=== PATIENT | male | born 1960 ===

== ENCOUNTER 2024-04-04 20:45 | Emergency (ER) | payer BC ==
[2024-04-04] MEDS: Sodium Chloride 0.9% 1,000 ML IV SCH (21:16)
[2024-04-04 21:17] LABS: EOSINOPHILS PERCENT AUTO 0.1 % (0.0-6.0); HEMATOCRIT 42.2 % (42.0-52.0); HEMOGLOBIN 14.2 gm/dl (14.0-18.0); IMMATURE GRAN ABSOLUTE AUTO 0.04 K/mm3 (0.00-0.05); IMMATURE GRAN PERCENT AUTO 0.4 % (0.0-0.4); LYMPHOCYTES ABSOLUTE AUTO 1.3 K/mm3 (1.0-4.8); LYMPHOCYTES PERCENT AUTO 13.4 % (24.0-44.0); MEAN CORPUSCULAR HEMOGLOBIN 32.3 pg (28.0-32.0); MEAN CORPUSCULAR HGB CONC 33.6 g/dl (32.0-36.0); MEAN CORPUSCULAR VOLUME 95.9 fl (83.0-99.0); MEAN PLATELET VOLUME 9.4 fl (9.4-12.4); MONOCYTES ABSOLUTE AUTO 0.2 K/mm3 (0.0-0.8); MONOCYTES PERCENT AUTO 2.1 % (0.0-8.0); NEUTROPHILS ABSOLUTE AUTO 8.1 K/mm3 (1.8-7.7); PLATELET COUNT,PLT 284 K/mm3 (150-400); WHITE BLOOD CELL COUNT,WBC 9.62 K/mm3 (3.9-11.3)
[2024-04-04 21:29] LABS: A/G RATIO 1.1 (1-2); ALBUMIN 3.8 g/dl (3.4-5.0); ANION GAP 13.4 (5-15); BILIRUBIN TOTAL 0.3 mg/dL (0.2-1.0); BUN/CREATININE RATIO 16.4 (14-18); CALCIUM 9.2 mg/dL (8.5-10.1); CREATININE 1.1 mg/dL (0.7-1.3); EST CRCL DRUG DOSING (CG) 66.95 mL/min; ETHANOL BLOOD MEDICAL 0.18 gm% (0.00); PROTEIN TOTAL,TP 7.4 g/dl (6.4-8.2)
[2024-04-04 21:32] LABS: POTASSIUM,K 4.4 mEq/L (3.5-5.1)
[2024-04-04] MEDS ORDERED: Iopamidol 755 Mg/ML 100 ML Bottle IVPUSH ONE (23:23)
[2024-04-04] MEDS ORDERED: Sodium Chloride 0.9% 100 ML IV SCH (23:30)
== END 2024-04-05 00:15 | disposition home or self-care (01) ==
LOC: JD.ED 20:45
DX: R20.2 Paresthesia of skin (principal); Z79.899 Other long term (current) drug therapy; Z88.6 Allergy status to analgesic agent
CPT/HCPCS: 36415; 70450; 70496; 70498; 80053; 80307; 82947; 85025; 93005; 99284; J7030; 93010